=== PATIENT | female | born 2000 | race Caucasian/White ===

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

== ENCOUNTER 2021-12-28 18:41 | Emergency (ER) | payer BC ==
[~2021-12-28] VITALS: Ht 165.1 cm; Wt 63.6 kg
[2021-12-28 18:50] VITALS: BP 107/75; TEMP 98.6
[2021-12-28 19:40] VITALS: PULSE 72
== END 2021-12-28 19:40 | disposition home or self-care (01) ==
LOC: COL.ER 18:41
DX: T18.9XXA Foreign body of alimentary tract, part unspecified, initial encounter (principal); R13.10 Dysphagia, unspecified